=== PATIENT | female | born 1980 | race Asian ===

== ENCOUNTER 2022-05-16 14:47 | Emergency (ER) | payer MEDICAID, SELFPAY ==
--- NOTE | ~2022-05-16 | XR_ITS ---
EXAMINATION: XR ankle LT min 3V XR foot LT min 3V CLINICAL INFORMATION: Reason for Exam pain, limited rom COMPARISON: None. TECHNIQUE: Pain FINDINGS: No acute fracture or dislocation. Ankle mortise is congruent. Talar dome intact. Tiny plantar calcaneal enthesophyte. Small tibiotalar marginal osteophytes. Soft tissues unremarkable. XR/XR foot LT min 3V IMPRESSION: No acute fracture or dislocation.
--- NOTE | ~2022-05-16 | XR_ITS ---
EXAMINATION: XR ankle LT min 3V XR foot LT min 3V CLINICAL INFORMATION: Reason for Exam pain, limited rom COMPARISON: None. TECHNIQUE: Pain FINDINGS: No acute fracture or dislocation. Ankle mortise is congruent. Talar dome intact. Tiny plantar calcaneal enthesophyte. Small tibiotalar marginal osteophytes. Soft tissues unremarkable. XR/XR ankle LT min 3V IMPRESSION: No acute fracture or dislocation.
[2022-05-16 15:00] VITALS: BP 139/82; PULSE 83; RESP 18; TEMP 37; O2SAT 99; BMI 27.4
--- OUTSIDE RECORDS SUMMARY | 2022-05-16 15:51 | XMS_ITS ---
:1980 Author Care Team Providers Name Role Phone MUKUL PANIAGUA MD Primary Care Provider [phone] Allergies Code Code System Name Reaction Severity Status Onset 374759 RxNorm Bactrim ? ? Active ? 21580821 RxNorm Ceftin ? ? Active ? [id number] RxNorm Flagyl ? ? Active ? 44851 RxNorm Tetracycline ? ? Active ? Sulfa (Sulfonamide ? ? Deactivated ? Antibiotics) Medications Name Status Start Date Stop Date ? ? Augmentin 875 mg-125 mg tablet Completed ? 0 03/14/2021 Take 1 tablet every 12 hours by oral route for 10 days. azithromycin 250 mg tablet Active ? Not a vailable budesonide 0.5 mg/2 mL suspension for nebulization Active ? Not available USE ONE AMPULE THREE TIMES A DAY cephalexin 500 mg capsule Active ? Not av ailable TAKE 1 CAPSULE BY MOUTH FOUR TIMES DAILY FOR 7 DAYS ciprofloxacin 500 mg tablet Active ? Not available TAKE 1 TABLET BY MOUTH EVERY 12 HOURS FOR 7 DAYS clindamycin HCl 150 mg capsule Active ? N ot available TAKE 2 CAPSULES BY MOUTH EVERY 8 HOURS FOR 7 DAYS cyclobenzaprine 10 mg tablet Active ? Not available TAKE 1 TABLET BY MOUTH TWICE DAILY N EEDED FOR SPASM. MAY CAUSE DROWSINESS. DISCONTINUE METHOCARBAMOL epinephrine 0.3 mg/0.3 mL injection, auto-injector Active ? Not available USE DIRECTED FOR ANAPHYLAXIS THEN CALL 911 estradiol 0.025 mg/24 hr semiweekly transdermal patch Active ? Not available APPLY 1 PATCH TOPICALLY EVERY SUNDAY AND SUNDAY PLEASE SC HEDULE APPOINTMENT estrogens conj-meprobamate Active ? Not a vailable Flonase Allergy Relief 50 mcg/actuation nasal spray,suspension A ctive ? Not available Edgar 1 spray every day by intranasal route. fluconazole 150 mg tablet Active ? Not av ailable TAKE 1 TABLET BY MOUTH 1 TIME. MAY REPE AT DOSE AFTER 72 HOURS IF SIGNS AND SYMPTOMS PERSIST fluocinolone 0.01 % scalp oil and shower cap Active ? Not available APPLY 1 SQUIRT TOPICALLY TO THE AFFECTE D AREA EVERY EVENING FOR 7 NIGHTS THE USE ONCE WEEKLY THEREAFTER hydrocortisone 2.5 % topical ointment Completed ? 06/05/2019 APPLY A THIN LAYER TO THE AFFECTED AREA(S) BY TOPICAL ROUTE 2 T IMES PER DAY ketoconazole 2 % shampoo Active ? Not karen ilable levofloxacin 750 mg tablet Active ? Not a vailable TAKE 1 TABLET BY MOUTH EVERY DAY FOR 10 DAYS lorazepam 0.5 mg tablet Active ? Not avai lable methocarbamol 750 mg tablet Active ? Not available TAKE 1 TABLET BY MOUTH 3 TIMES A DAY FO R 10 DAY FOR BACK PAIN AND MUSCLE SPASMS mupirocin 2 % topical ointment Active ? N ot available APPLY SMALL AMOUNT TOPICALLY TO THE AFFECTED AREA THREE TIMES D AILY prednisone 20 mg tablet Completed ? 03/14/20 21 Take 2 tablets every day by oral route for 4 days. ProAir HFA 90 mcg/actuation aerosol inhaler Active ? Not available INHALE 2 PUFFS EVERY 2-4 HOURS NEEDED sulfamethoxazole 800 mg-trimethoprim 160 mg tablet Active ? Not available TAKE 1 TABLET BY MOUTH TWICE DAILY FOR 7 DAYS Tessalon Perles 100 mg capsule Completed ? 0 03/14/2021 Take 1 capsule 3 times a day by oral route as needed. triamcinolone acetonide 0.1 % topical ointment Active ? Not available APPLY TO AFFECTED AREA 2-3 TIMES DAILY FOR NO MORE THAN 2-3 WEEKS. THEN USE ONLY ON THE WEEKENDS NEEDED Problems None recorded. Procedures Date Name Performed by ? ? Port, Indwelling, Imp Information not av ailable 06/10/2019 Electrocardiogram [facility] [address] [place] [address] (Work Place) 06/10/2019 XR, Chest, 2 View [facility] [address] [place] [address] (Work Place) Results Lab Results Date Name Specimen Result Interpretation Description Value Range Status Address ? 06/10/2019 Electrocardiogram ? Rate and NSR 90 bpm ? ? [facility] Rhythm [place]: [address] [facility] ? ? ? Qrs normal ? ? [facility] morphology [place]: [address] [facility] ? ? ? MD Interval 124ms ? ? [facility] [place]: [address] [facility] ? ? ? QRS 76ms ? ? [facility] Duration [place]: [address] [facility] ? ? ? QT Interval 364/412ms ? ? [facility]: [address] [facility] 06/05/2019 Rapid Flu (A+B) ? Flu negative ? ? [facility]: [address] [facility] ? Rapid Flu (A+B) ? Flu negative ? ? [facility]: [address] [facility] Past Encounters 03/14/2021 Cellulitis SHERRIE Cobian: [address] [place] [address], Ph. Social History Tobacco Smoking Status Former Smoker Vaccine List None recorded. Plan of Care Reminders Provider Appointments None recorded. ? ? Lab None recorded. ? ? Referral None recorded. ? ? Procedures None recorded. ? ? Surgeries None recorded. ? ? Imaging None recorded. ? ? Vitals 03/14/2021 04:12PM Established Patient Blood Pressure 116/78 mm[Hg] 07/18/2019 03:20PM Established Patient Blood Pressure 116/88 mm[Hg] 06/10/2019 05:35PM Established Patient Blood Pressure 122/77 mm[Hg] 06/05/2019 02:05PM Established Patient Blood Pressure 117/79 mm[Hg] 02/06/2019 10:05AM New Patient Blood Pressure 118/85 mm[Hg]
--- NOTE | 2022-05-16 16:01 | ED_ITS ---
HPI - Extremity Injury (Lower) General Chief Complaint: Extremity Injury, Lower Stated Complaint: L foot inj. Time Seen by Provider: 05/16/22 15:34 Source: patient Mode of arrival: ambulatory Limitations: no limitations History of Present Illness HPI Narrative: Patient is a 41-year-old female who presents emergency department for evaluation of left foot pain. Patient reports an initial fracture to the left foot and ankle 1 year ago that did not require surgical repair, she subsequently re- injured the left foot 7 months ago, reporting that she had a new fracture to the right foot, was given a special shoe to wear, was not evaluated by Orthopedics after this. She has had continuous pain since 3 injury in October 2021. However, 3 days ago she tripped in her driveway through a pothole and rolled her ankle, s he is experiencing an increased amount of pain to the left lateral foot that is worse with weight-bearing, and sends shooting pains upper leg. Denies numbness or tingling or cold sensation to the foot. Related Data Previous Rx's Medication Instructions Recorded oxycodone 5 mg tablet 5 mg PO Q6H PRN pain #7 tabs 05/16/22 Allergies Allergy/AdvReac Type Severity Reaction Status Date / Time metronidazole [From FLAGYL] Allergy Intermediate HIVES AND Unverified 04/26/22 16:28 VOMITING sulfamethoxazole Allergy Intermediate HIVES AND Unverified 04/26/22 16:28 [From BACTRIM] VOMITING trimethoprim [From BACTRIM] Allergy Intermediate HIVES AND Unverified 04/26/22 16:28 VOMITING Review of Systems Review of Systems: Musculoskeletal: Positive left foot pain as noted in HPI Yes all other systems are reviewed and are negative [facility] Past Medical History Attestation statement: The following information was validated with the patient. Source: old records reviewed Social History Social History Advance Directives: No Advance Directives Information Provided: No Physical Exam Vital Signs: Vital Signs: Last Vital Signs Temp 98.6 F 05/16/22 15:00 Pulse 83 05/16/22 15:00 Resp 18 05/16/22 15:00 BP 139/82 05/16/22 15:00 Pulse Ox 99 05/16/22 15:00 O2 Del Method 05/16/22 15:00 BMI result Body Mass Index 27.4 Appearance: Alert.?Oriented to person, place and time. No acute distress.?Normal affect. Neck: Normal inspection.? Neck supple.?? CVS: Heart sounds normal. Normal heart rate and rhythm.? Pulses normal.?? Respiratory: No respiratory distress.? Lung sounds clear to auscultation bilaterally?? Abdomen: Soft and non-tender. Normoactive bowel sounds. Skin: Skin warm and dry.? Normal skin color.? Extremities: No lower extremity edema.? Palpable tenderness upon the left lateral foot, over 5th metacarpal with palpation. 2+ DP/PT pulse bilaterally. Full AROM to digits of left foot and left ankle. Neuro: Moves all extremities spontaneously. Sensation intact bilaterally. No focal neuro deficits. Ambulates with normal steady gait. Course Course Course Narrative: Patient is a 41-year-old female who presents to the emergency department for evaluation of acute on chronic left foot pain. Recent injury over the past 3 days, XR imaging of the left foot and ankle reveal no acute fracture or dislocation. Extremities neurovascularly intact distally. There is no obvious deformity. Discussed plan of care for rest, ice, elevation, offloading shoe, acetaminophen/ibuprofen, short prescription for oxycodone to use only as needed for severe pain. Advised outpatient follow-up with her previous orthopedic provider, she was additionally given contact information for the orthopedist associated with [facility]. All questions were answered. Discussed worrisome signs and symptoms to return back to the emergency department for. All questions answered. Patient discharged home in stable condition. MDM - Extremity Injury (Lower) Medical Records Attestation: I reviewed the patient's medical records. Imaging Data XR foot: Radiologist's impression: XR/XR ankle LT min 3V IMPRESSION: No acute fracture or dislocation.? XR/XR foot LT min 3V IMPRESSION: No acute fracture or dislocation.? Discharge Plan Discharge Clinical Impression: Acute pain of left foot Patient Disposition: Home, Self-Care Additional Instructions: As we discussed, the x-ray of your left ankle and foot does not reveal any new fracture or dislocation. Be sure to rest, apply ice to the area for 10-15 minutes 3-4 times daily, offloading shoe any time the ER walking. You can take ibuprofen 200 mg, 3 tablets (600mg) every 6-8 hours as needed for pain, in addition to Tylenol 500 mg, 2 tablets (1,000mg) every 4-6 hours as needed for pain, but not to exceed 3 doses daily (3,000mg).? You have been given a prescription for oxycodone to use only as needed for severe pain. This is a narcotic medication/opiate, it may be addictive. Do not drive, drink alcohol, go to overall taking this medication Contact your previous orthopedic provider, or orthopedic provider associated with [facility] his number has been provided to you for follow-up of acute on chronic left foot pain Return to the emergency department any new or worsening symptoms or concerns Prescriptions: New oxycodone 5 mg tablet 5 mg PO Q6H PRN (Reason: pain) Qty: 7 0RF Rx Instructions: Partial Fill upon patient request. Referrals: Bianca Ervin PA-C [Physician Applied Behavior Specialist] - Charu Lopez MD [Primary Care Provider] - Interventions: ED Discharge Assessment Last Done: 05/16/22 17:13 Discharge Date/Time: 05/16/22 17:13
== END 2022-05-16 17:13 | disposition home or self-care (01) ==
PROVIDERS: Emergency Provider Student in an Organized Health Care Education/Training Program; PCP Internal Medicine
DX: M79.672 Pain in left foot (principal)
CPT/HCPCS: 73610; 73630; 99283

== ENCOUNTER 2024-01-25 12:31 | Outpatient (REF) | payer OTHER, SELFPAY ==
[2024-01-25 13:59] LABS: Amphetamine Screen Urine Not Detected (Not Detect); Barbiturates, Urine Not Detected (Not Detect); Benzodiazepines Screen Urine Not Detected (Not Detect); Buprenorphine Scr Not Detected (Not Detect); Cannabinoid Screen Urine Not Detected (Not Detect); Cocaine Screen Urine Not Detected (Not Detect); Fentanyl, urine Not Detected (Not Detect); Methadone Screen, Urine Not Detected (Not Detect); Opiate Screen Urine POSITIVE (Not Detect); Oxycodone Screen Urine Positive (Not Detect); Phencyclidine Screen Urine Not Detected (Not Detect)
== END 2024-01-25 12:32 | disposition home or self-care (01) ==
LOC: HO.LNP 12:31
PROVIDERS: Visit Provider Psychiatry & Neurology Psychiatry
DX: F11.20 Opioid dependence, uncomplicated (principal); F14.20 Cocaine dependence, uncomplicated
CPT/HCPCS: 80307

== ENCOUNTER 2024-01-30 13:04 | Outpatient (AMB) | payer OTHER, SELFPAY ==
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
[2024-01-30 16:31] VITALS: BP 160/80; PULSE 95; RESP 20; O2SAT 98
== END 2024-01-30 14:14 | disposition home or self-care (01) ==
PROVIDERS: PCP Internal Medicine; Visit Provider Nurse Practitioner Psychiatric/Mental Health
DX: F11.20 Opioid dependence, uncomplicated (principal)
CPT/HCPCS: 99204

== ENCOUNTER → 2024-01-30 13:04 | Outpatient (BNVA) | payer OTHER, SELFPAY | PROVIDERS: PCP Internal Medicine; Visit Provider Nurse Practitioner Psychiatric/Mental Health | DX: F11.20 Opioid dependence, uncomplicated (principal) | CPT/HCPCS: 99202 ==

== ENCOUNTER 2024-02-04 08:00 | Outpatient (RCR) | payer OTHER, SELFPAY ==
[2024-01-25 10:52] VITALS: BP 109/80; PULSE 82; TEMP 36.6; BMI 24.0
--- NOTE | 2024-01-25 15:11 | PC.ADMIT ---
Patient is a 43 year old female who has a dx of MDD, PTSD, Opiate use severe and Cocaine use severe. She was referred from [facility] behavioral health unit where she was admitted from 11/14-12/03/23 secondary to opiate overdose and cocaine use after she was found unresponsive at her place of work and was given Narcan 4 times and was revived. She stated that this was an accidental overdose at the time stating she snorted a larger amount than she usually takes while at work then stated to herself, what have I done . She stated while in the hospital she realized she lost her job and was homeless and expressed what is the point of being alive . She is currently living with her sister whom she stated is supportive. Patient reports her longest period of sobriety was almost 9 years from [id number] however she stated she was on prescriptions pain medications during that time for six months secondary to a fractured foot. She reports a history of going to detox 19 times. Patient reported to [facility] staff Tammy during the Integrative Assessment that she last used Cocaine and Opiates November 14, 2023 however when I asked her for a VERNON she stated she is going to be positive for opiates. Patient reports when she was discharged from the hospital she started to use Opiates again using Oxycodone 30 mg tabs taking 5-6 tabs a day. She stated she is tapering herself off of opiates and is now taking Vicodin 5 mg tabs 2 daily for the past 2 days and has a few tabs left and plans to be done with the taper over the weekend. Patient encouraged to go to detox to manage withdrawals as she was educated on the dangers of doing this on her own. She stated she has been to detox 19 times and does not want to go at this time. Will revisit next week. Patient does have Narcan. Educated patient about MAT. She is interested in talking to the [facility] about treatment options. I called the [facility] and left a message for them to call me back to schedule and appointment. Symptoms of detox currently experiencing feelings of hot and cold. Denied diarrhea, denied body aches, no nausea, no vomiting, does not appear restless. Dr Orozco, [facility] staff including Marriage Counselor are aware. I spoke to [facility] and they stated earliest available appointment would be to go to the clinic next Sunday as a walk in. Patient agreeable. 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 Has plans to move to [place] at the end of this month. Stated that her friends who live there are currently sober and are supporting her in the move. Patient is alert and oriented x4. Calm and Cooperative. Denied SI, No HI. She was given a copy of her safety/relapse plan. Patient has a sponsor and is attending NA meetings. She has plans to attend NA today and over the weekend and has an appointment with acupuncture on Sunday which she stated helps with the withdrawal and cravings. Patient did not continue medications prescribed from the hospital with the exception of Estradiol.
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
--- NOTE | 2024-01-30 11:40 | PC.NURSE ---
Patient reports she has been tapering herself off of Oxycodone and she is currently taking Oxycodone one 5 mg tab daily. She reports some body aches. Talked about the dangers of opiate use and her past history. She does not want to go to detox at this time. JANEEN cabrera. She has an appointment with the [facility] at 1:00 pm. to review treatment options.
[2024-01-31 14:50] LABS: Amphetamine Screen Urine Not Detected (Not Detect); Barbiturates, Urine Not Detected (Not Detect); Benzodiazepines Screen Urine Not Detected (Not Detect); Buprenorphine Scr Not Detected (Not Detect); Cannabinoid Screen Urine Not Detected (Not Detect); Cocaine Screen Urine Not Detected (Not Detect); Fentanyl, urine POSITIVE (Not Detect); Methadone Screen, Urine Not Detected (Not Detect); Opiate Screen Urine Not Detected (Not Detect); Oxycodone Screen Urine Not Detected (Not Detect); Phencyclidine Screen Urine Not Detected (Not Detect)
--- NOTE | 2024-02-01 23:57 | HO.PHPPROGNO ---
Subjective Subjective Date of Service: 02/01/24 Reason For Visit: depression,BLAIR Interim History: Patient reports she has been feeling better, especially in terms of withdrawal symptoms. She has been meeting with the [facility] team and they recommended a slower taper than she had been doing herself. This is definitely better . SHe had cut herself down to 5 mg of oxycodone very quickly was feeling overly anxious and unwell. She has reportedly been backed up to 10 mg a day and will cut down by 50 % every so many days and anticipates being completed with taper and off opioids in the next 2 weeks. She had originally planned to leave for [place] next week but is now postponing those plans for 2 weeks as she would like to be completely off opioids prior to going to [place]. I want a fresh start and says she doesn want to be dealing with symptoms still and having to go looking for treatment or be tempted to finding alternatives on her own if she did run into any access issues. Mood is a little anxious...I got a lot going on Has taken a virtual tour of some apartments and is trying to secure a place before arrives. Plans to live a lone but has supports in the area. Denies any h/h/SI. Denies any AH, VH, HI. Sleep, appetite energy are intact. Denies having any further panic attacks since she met with [facility] and has been transitioned to a slower taper. Denies any alcohol or drug cravings. Medication Compliance: Yes Side effects from medications: No Attending Groups: Yes Review of Systems Acute medical concerns: No Diagnostics Vital Signs (24Hr): BMI result Body Mass Index 24.0 Labs Labs: Laboratory Results - last 48 hr 01/30/24 11:37 Urine Opiates Screen Not Detected Ur Buprenorphine Scrn Not Detected Ur Oxycodone Screen Not Detected Urine Methadone Screen Not Detected Urine Fentanyl Screen POSITIVE H Ur Barbiturates Screen Not Detected Ur Phencyclidine Scrn Not Detected Ur Amphetamines Screen Not Detected U Benzodiazepines Scrn Not Detected Urine Cocaine Screen Not Detected U Marijuana (THC) Screen Not Detected 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 factors: Status: Acute Code(s): F45.42 - Pain disorder with related psychological factors (3) PTSD (post-traumatic stress disorder): Status: Acute Code(s): F43.10 - Post-traumatic stress disorder, unspecified (4) Cocaine abuse: Status: Acute Code(s): F14.10 - Cocaine abuse, uncomplicated (5) Other impulse disorders: Status: Acute Code(s): F63.89 - Other impulse disorders Assessment and Plan: hx suggestive of ODD in adolescence possibly undiagnosed ADHD into adulthood (6) Mood disorder: Status: Acute Code(s): F39 - Unspecified mood [affective] disorder Assessment and Plan: patient experiences symptoms of PMDD, SIMD History 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, recurrent, mod + mood dysregulation 2/t adhd (patient previously convinced she had Bipolar disorder in past - though denies any benefit from mood stabilizers) Plan continue clonidine 0.1 mg BID prn anxiety continue on opioid taper as per [facility] recommendations continue other regular medications?- estradiol, nicotine gum prn, albuterol inhaler prn, naloxone rescue nasal spray prn sent refill for albuterol per patient request Routine lab work ordered EKG, routine for baseline QTc for medication considerations UDS as indicated - UDS screens through [facility] continue to f/u with [facility] for OUD Continue to monitor Certification I certify that partial hospital treatment is medically necessary due to the symptoms and problems resulting from the patient's mental illness and the failure to treat the patient at the partial hospital level of care would likely result in the patient requiring inpatient psychiatric care which could not be prevented at a less intensive level of care. Total time managing care of this patient today ____ minutes. Discharge Plan Discharge Attending provider: Mague Orozco Medications: New clonidine HCl 0.1 mg tablet 0.1 mg PO BID PRN (Reason: anxiety, heart racing) Qty: 20 0RF Continued estradiol 0.025 mg/24 hr patch semiweekly 1 patch topical 2XW nicotine (polacrilex) 2 mg Gum 2 mg BUCCAL Q1H ipratropium-albuterol 0.5 mg-3 mg(2.5 mg base)/3 mL Solution For Nebulization 3 ml INHALATION BID PRN (Reason: sob) Qty: 90 0RF No Action gabapentin 300 mg Tablet 300 mg PO BEDTIME Rx Instructions: Patient stated she is not taking. naloxone 4 mg/actuation [place],Non-Aerosol See Rx Instructions .ROUTE .COMPLEX PRN (Reason: Opiate overdose) Rx Instructions: spray 1 dose into ONE nostril; alternate nostrils w each dose until help arrives Print Language: Occitan
--- NOTE | 2024-02-04 14:25 | HO.PHP ---
Staff informed the group that Nubia was missing group in the third group of the day. This t/w went to check and saw her stuff present in the kitchen, and then went to call her to see where she was. She stated that she realized she was late for group, and that it was probably almost over, so she did not come in. This staff stressed the importance of being in groups at all scheduled times while in the program. Nubia apologized and appeared receptive.
--- NOTE | 2024-02-05 11:03 | HO.PHP ---
Pt did not arrive to [facility] for programming this morning. Pt was called by global technical writer at 9:20 am, and again at 9:45 when global technical writer made contact. Pt stated she overslept and would be in late to complete her discharge, pt asked to come in for 10:45 or 11 am. Pt agreed.
--- NOTE | 2024-02-05 22:04 | HO.PHPPROGNO ---
Subjective Subjective Date of Service: 02/05/24 Reason For Visit: depression,BLAIR Interim History: Patient seen for follow-up, anticipating discharge at the end of program today.? Plans to move to [place] on the . Delayed plans to leave for another week, until taper from oxycodone complete. Currently at 7.5 mg/d (split 5/2.5) She reports following the recommendations from [facility] which is more gradual taper than she had been doing which was causing her to feel sick. She reports doing well, denies any symptoms or complaints. Mood is stable.? Denies any hopelessness or SI. Denies thoughts of harming self or others at this time. Denies any aggressive ideation or HI. Denies any paranoia or AH or VH. Sleep, appetite, energy stable. Denies any cravings or urges to use. We reviewed her recent UDS on 01/29 from her last appointment at [facility], positive for fentanyl (neg for all other subs including opiates, oxy). Insists she has not been taking anything other than oxycodone which she gets off her friend's script (she reportedly picked up the Rx herself from friend's pharmacy) which she reportedly told water main installer helper at [facility] and they gave her recommendations on how to taper this (but no new rx). She plans to go over to [facility] today to make a follow up appointment to discuss with the provider. Mental Status Exam Mental Status Exam Narrative: Alert, oriented, in no acute distress. Calm, cooperative. Mood stable, affect appropriate. Speech normal. Thought process linear, coherent, more goal-directed. Thought content related to stressors, future-oriented, denies any helplessness, hopelessness or SI.? No aggressive ideation or HI. No paranoia or delusional content elicited. No evidence of psychosis. Insight and judgment fair-good. Diagnostics Vital Signs (24Hr): BMI result Body Mass Index 24.0 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 factors: Status: Acute Code(s): F45.42 - Pain disorder with related psychological factors (3) PTSD (post-traumatic stress disorder): Status: Acute Code(s): F43.10 - Post-traumatic stress disorder, unspecified (4) Cocaine abuse: Status: Acute Code(s): F14.10 - Cocaine abuse, uncomplicated (5) Other impulse disorders: Status: Acute Code(s): F63.89 - Other impulse disorders (6) Mood disorder: Status: Acute Code(s): F39 - Unspecified mood [affective] disorder Plan Discharge from [facility] Continue regular medications Will follow up with [facility] Refills sent to pharmacy Will defer further medication management to outpatient provider Safety plan reviewed Patient educated on: diagnosis, medication risk/benefits and substance abuse Informed Consent: understands Reason for contiued partial hosp. stay Substantial Risk for: stable for discharge Certification I certify that partial hospital treatment is medically necessary due to the symptoms and problems resulting from the patient's mental illness and the failure to treat the patient at the partial hospital level of care would likely result in the patient requiring inpatient psychiatric care which could not be prevented at a less intensive level of care. Total time managing care of this patient today _30___ minutes. Discharge Plan Discharge Attending provider: Mague Orozco Medications: New clonidine HCl 0.1 mg tablet 0.1 mg PO BID PRN (Reason: anxiety, heart racing) Qty: 20 0RF albuterol sulfate 90 mcg/actuation HFA aerosol inhaler 1 inh inhalation QID PRN (Reason: SOB, wheeze) Qty: 6.7 0RF Continued estradiol 0.025 mg/24 hr patch semiweekly 1 patch topical 2XW naloxone 4 mg/actuation [place],Non-Aerosol See Rx Instructions .ROUTE .COMPLEX PRN (Reason: Opiate overdose) Rx Instructions: spray 1 dose into ONE nostril; alternate nostrils w each dose until help arrives nicotine (polacrilex) 2 mg Gum 2 mg BUCCAL Q1H Discontinued ipratropium-albuterol 0.5 mg-3 mg(2.5 mg base)/3 mL Solution For Nebulization 3 ml INHALATION BID PRN (Reason: sob) No Action gabapentin 300 mg Tablet 300 mg PO BEDTIME Rx Instructions: Patient stated she is not taking. Print Language: Cypriot
== END 2024-02-05 23:59 | disposition home or self-care (01) ==
LOC: HO.PHPA 08:00
PROVIDERS: Visit Provider Psychiatry & Neurology Psychiatry
DX: F43.10 Post-traumatic stress disorder, unspecified (principal); F45.42 Pain disorder with related psychological factors; F63.89 Other impulse disorders; F39 Unspecified mood [affective] disorder; F14.10 Cocaine abuse, uncomplicated; F11.20 Opioid dependence, uncomplicated; Z79.899 Other long term (current) drug therapy
CPT/HCPCS: 80307; 90791; 90853